=== PATIENT | female | born 1960 | race Caucasian/White ===

== ENCOUNTER 2024-06-12 11:24 | Emergency (ER) | payer OTHER, SELFPAY ==
[2024-06-12 11:38] VITALS: BP 154/84
--- NOTE | 2024-06-12 11:55 | EDRN ---
Sarah VILLALBA in room w/ pt at this time.
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
[2024-06-12 12:08] VITALS: BMI 27.9
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
[2024-06-12 12:47] VITALS: BP 148/91
--- NOTE | 2024-06-12 13:42 | EDRN ---
Sarah VILLALBA in room w/ pt at this time. Pt has temporal bone fracture.
[2024-06-12 14:50] VITALS: BP 138/83
== END 2024-06-12 14:55 | disposition home or self-care (01) ==
LOC: EMR 11:24
PROVIDERS: EMERGENCY PHYSICIAN Emergency Medicine; FAMILY PHYSICIAN Family Medicine
DX: S02.19XA Other fracture of base of skull, initial encounter for closed fracture (principal); W21.04XA Struck by golf ball, initial encounter; Z90.49 Acquired absence of other specified parts of digestive tract
CPT/HCPCS: 99284; 70450